=== PATIENT | female | born 1945 | race Caucasian/White ===

== ENCOUNTER 2023-09-23 13:28 | Emergency (ER) | payer MEDICARE, BC, SELFPAY ==
[2023-09-23 13:30] VITALS: BP 206/109
[2023-09-23 14:29] LABS: % Basophils 0.4 % (0-2); % Eosinophils 1.9 % (0-6); % Immature Granulocytes 0.2 % (0-0.5); % Lymphocytes 17.5 % (20.5-51.1); % Monocytes 7.2 % (1.7-9.3); % Neutrophils 72.8 % (42.2-75.2); Absolute Eosinophils 0.2 10^3/uL (0-0.7); Absolute Lymphocytes 1.4 10^3/uL (1.2-3.4); Absolute Monocytes 0.6 10^3/uL (0.1-0.6); Absolute Neutrophils 5.9 10^3/uL (1.4-6.5); Hematocrit 38.3 % (37.0-47.0); Hemoglobin 13.5 g/dL (12.0-16.0); Mean Corp Hgb Conc. 35.2 g/dL (33.0-37.0); Mean Corpuscular Hgb 31.2 pg (27.0-31.0); Mean Corpuscular Volume 88.5 fL (81.0-99.0); Mean Platelet Volume 11.8 fL (7.4-10.4); Nucleated Red Blood Cells % 0 %; Platelet Count 181 10^3/uL (130-400); Red Blood Cell Count 4.33 10^6/uL (4.20-5.40); Red Cell Dist. Width 12.6 % (11.5-14.5)
[2023-09-23 14:35] LABS: ALT (SGPT) 28 U/L (0-35); AST (SGOT) 35 U/L (14-36); Albumin 4.7 g/dl (3.5-5.0); Alkaline Phosphatase 69 U/L (38-126); Blood Urea Nitrogen 14 mg/dl (7-17); Calcium 9.5 mg/dl (8.4-10.2); Carbon Dioxide 28 mmol/L (22-30); Chloride 99 mmol/L (98-107); Glucose 99 mg/dl (70-99); Potassium 4.3 mmol/L (3.5-5.1); Sodium 133 mmol/L (135-145); Total Bilirubin 0.5 mg/dl (0.2-1.3); eGFR > 60.00
[2023-09-23 14:44] LABS: Troponin I < 0.012 ng/ml
[2023-09-23 15:52] VITALS: BMI 25.2
[2023-09-23 16:00] VITALS: BP 168/69
[2023-09-23] MEDS: NSS 500 IV (16:05)
[2023-09-23 17:00] VITALS: BP 148/69
[2023-09-23 17:39] LABS: Troponin I < 0.012 ng/ml
[2023-09-23 17:44] LABS: Urine Albumin Negative (Neg - Trace); Urine Bilirubin Negative (Negative); Urine Character Clear (Clear); Urine Color Yellow; Urine Glucose Negative (Negative); Urine Ketone Negative (Negative); Urine Leukocyte Negative (Negative); Urine Nitrite Negative (Negative); Urine Occult Blood Negative (Negative); Urine Specific Gravity 1.005 (<1.030); Urine Urobilinogen Negative (Neg - 1+)
[2023-09-23 18:00] VITALS: BP 149/59
--- NOTE | 2023-09-23 18:06 | ED.GENMED ---
History of Present Illness
General
Chief Complaint: Fainting Sensation
Source: patient and spouse
Exam Limitations: none
Time Seen by Provider: 09/23/23 15:05
Nursing documentation reviewed up to this point in time: agreed with
History of Present Illness
History of Present Illness:
77-year-old female with a past medical history of hypertension hyperlipidemia, CAD with previous triple bypass presenting to the emergency department today with concerns of lightheadedness after doing some work around the house this morning. Also
had associated nausea no vomiting no chest pain.
Past History
Past History
ED Past Medical History: CAD, HTN, Hypercholesterolemia and [place]
ED Past Surgical History: Cardiac (Cardiac bypass)
Social History
Tobacco: Non-smoker
Alcohol: None
Drug: None
Personal:
Living: with family
Review of Systems
Review of Systems
Allergies reviewed?: Yes
All Other Systems: ROS reviewed and negative except as documented in HPI and ROS
Phy Exam
Physical Exam
Physical Exam:
GENERAL: Alert , in no apparent distress
EYE: pupils equal and reactive
NECK: Supple, no significant adenopathy.
ENT: o/p clr, mmm.
CARDIAC: Regular rate and rhythm .
LUNGS: Clear breath sounds bilaterally, no acute respiratory distress, no wheezes/rales/rhonchi
ABDOMEN: Soft, without focal tenderness, no r/g, no cvat
NEUROLOGICAL: Alert and oriented, no focal neuro deficits
SKIN: Warm and dry, skin intact.
MUSCULOSKELETAL: No edema, well perfused.
PSYCH: Normal and appropriate interaction.
Course
Orders/Labs/Results
Orders:
Orders
09/23/23 13:33
EKG [Electrocardiogram (*1)] Urgent
Reason for Study: Fatigue / Weakness
EKG- Treatment ONCE
09/23/23 13:50
Complete Blood Count/With Diff Urgent
Comprehensive Metabolic Panel Urgent
Troponin I Urgent
09/23/23 15:37
0.9% Sodium Chloride 500 ml [Nss] 500 ml IV BOLUS
09/23/23 16:32
EKG- Treatment ONCE
09/23/23 16:50
Electrocardiogram (*1) Urgent
Reason for Study: Syncope
09/23/23 16:59
Troponin I Urgent
09/23/23 17:03
UA Reflex to Culture [Urinalysis Reflex To Culture] Urgent
Date Specimen was Collected: 09/23/23
Time Specimen was Collected: 17:01
Abnormal Lab Results
09/23/23
13:50
MCH 31.2 H pg
(27.0-31.0)
MPV 11.8 H fL
(7.4-10.4)
Lymphocytes % 17.5 L %
(20.5-51.1)
Sodium 133 L mmol/L
(135-145)
09/23/23 13:50
09/23/23 13:50
Vital Signs
Initial and Last Documented VS:
Initial Vital Signs
Temp Pulse Resp BP Pulse Ox
98.2 F 67 16 206/109 99
09/23/23 13:30 09/23/23 13:30 09/23/23 13:30 09/23/23 13:30 09/23/23 13:30
Last Documented Vital Signs
Temp Pulse Resp BP Pulse Ox
98.2 F 52 14 149/59 100
09/23/23 13:30 09/23/23 17:59 09/23/23 17:59 09/23/23 18:00 09/23/23 17:59
MDM/Problems Addressed
MDM/Problems Addressed:
77-year-old female presenting to the emergency department today with concerns of lightheadedness after doing some work around the house today. Also with associated nausea. Upon arrival blood pressure elevated otherwise vital signs are normal.
Patient does take blood pressure medication at home and did not miss any doses. Labs were obtained without acute abnormalities initial troponin negative EKG nonischemic urinalysis normal. Additional second EKG and troponin without acute
abnormalities. Blood pressure improving to the 140s over 60s. Patient asymptomatic throughout ER stay. Very low risk for acute cardiac etiology he was given some fluids. Advised for close outpatient follow-up and return precautions given.
*Critical Care Note
Total Time (30-74mins, 75-104mins- exclusive of procedures): Not Applicable
ED Attending Note
-
Portions of this chart may have been created with voice recognition software.� Occasional wrong word or��sound alike� substitutions may have occurred due to the inherent limitations of voice recognition software.
Discharge Plan
Departure
Patient Disposition: Home (Routine Discharge)
Date of Disposition: 09/23/23
Time of Disposition: 18:06
Patient with high blood pressure during this ER visit?: No
Condition: Good
Covid-19: Not Applicable
Discharge Problem:
Lightheadedness
Instructions: Near Fainting (DC)
Prescriptions:
No Action
aspirin 81 MG tablet,delayed release (DR/EC)
81 mg PO DAILY
rosuvastatin 5 MG tablet
10 mg PO .3 TIMES A WEEK
coenzyme Q10 [Co Q-10] 300 MG capsule
300 mg PO DAILY
metoprolol tartrate 25 MG tablet
25 mg PO BID
[id number] liver-vit A-D3 [cod liver oil] 1 EACH capsule
1 ea PO DAILY
Referrals:
Kori Kohler DO [Family Provider] -
Activity Restrictions/Additional Instructions:
You came to the emergency department today after an episode of feeling lightheaded earlier today. Here you had a very reassuring assessment to normal EKGs and 2 negative troponin levels and a normal urinalysis. Please follow-up closely with your
primary care team over the next week or so. Return to the emergency department any worsening, new or concerning symptoms.
Interventions
Interventions:
*Risk Screen - Suicide Last Done: 09/23/23 13:32
*General Assessment Last Done: 09/23/23 13:32
*Neglect/Abuse Screening Last Done: 09/23/23 13:32
ED- Fall Risk Assessment Last Done: 09/23/23 15:52
*ED COVID-19 Vaccine History Last Done: 09/23/23 15:52
*Nursing Disposition Last Done: 09/23/23 18:16
ED- Cardiac Assessment Last Done: 09/23/23 15:52
ED- Neurological Assessment Last Done: 09/23/23 15:52
Discharge Date and Time
Discharge Date/Time: 09/23/23 18:16
Print Language: ESTONIAN
== END 2023-09-23 18:16 | disposition home or self-care (01) ==
LOC: EMR 13:28
PROVIDERS: Physician Assistant; Student in an Organized Health Care Education/Training Program; EMERGENCY PHYSICIAN Emergency Medicine; FAMILY PHYSICIAN Family Medicine
DX: R42 Dizziness and giddiness (principal); I10 Essential (primary) hypertension; E78.00 Pure hypercholesterolemia, unspecified; I25.10 Atherosclerotic heart disease of native coronary artery without angina pectoris
CPT/HCPCS: 99284; 80053; 81003; 84484; 85025; 93005

== ENCOUNTER 2023-09-25 14:25 | Emergency (ER) | payer MEDICARE, BC, SELFPAY ==
[2023-09-25 14:35] VITALS: BP 189/85
[2023-09-25 15:10] LABS: % Basophils 0.3 % (0-2); % Eosinophils 0.9 % (0-6); % Immature Granulocytes 0.3 % (0-0.5); % Monocytes 5.3 % (1.7-9.3); % Neutrophils 76.2 % (42.2-75.2); Absolute Eosinophils 0.1 10^3/uL (0-0.7); Absolute Lymphocytes 1.2 10^3/uL (1.2-3.4); Absolute Monocytes 0.4 10^3/uL (0.1-0.6); Absolute Neutrophils 5.3 10^3/uL (1.4-6.5); Hematocrit 39.3 % (37.0-47.0); Hemoglobin 13.7 g/dL (12.0-16.0); Mean Corp Hgb Conc. 34.9 g/dL (33.0-37.0); Mean Corpuscular Hgb 30.9 pg (27.0-31.0); Mean Corpuscular Volume 88.7 fL (81.0-99.0); Mean Platelet Volume 11.6 fL (7.4-10.4); Nucleated Red Blood Cells % 0 %; Platelet Count 173 10^3/uL (130-400); Red Blood Cell Count 4.43 10^6/uL (4.20-5.40); Red Cell Dist. Width 12.7 % (11.5-14.5); White Blood Cell Count 6.9 10^3/uL (4.8-10.8)
[2023-09-25 15:20] LABS: ALT (SGPT) 32 U/L (0-35); AST (SGOT) 36 U/L (14-36); Albumin 4.9 g/dl (3.5-5.0); Alkaline Phosphatase 66 U/L (38-126); Blood Urea Nitrogen 13 mg/dl (7-17); Calcium 9.6 mg/dl (8.4-10.2); Carbon Dioxide 28 mmol/L (22-30); Chloride 99 mmol/L (98-107); Glucose 99 mg/dl (70-99); Sodium 135 mmol/L (135-145); Total Bilirubin 0.6 mg/dl (0.2-1.3); Total Protein 7.4 g/dl (6.3-8.2); eGFR > 60.00
[2023-09-25 18:01] VITALS: BP 173/69
--- NOTE | 2023-09-25 18:27 | ED.GENMED ---
History of Present Illness
General
Chief Complaint: Dizziness
Source: patient and spouse
Exam Limitations: none
Time Seen by Provider: 09/25/23 18:07
History of Present Illness
History of Present Illness:
77-year-old female presents with a lightheadedness. Patient states started couple days ago she was seen in the emergency department. She was feeling better. Patient states she was then cleaning drapes and vacuuming them. She was going up and
down. She suddenly began to feel lightheaded again. He states it was definitely worse when she changed position. On my evaluation she denies any symptoms and feels that her symptoms have resolved. When she called her outboard motorboat operator they told her
to come for evaluation. She has an appointment upcoming with cardiology this week for follow-up. Patient also admits that her blood pressure is a little bit high at home
Past History
Past History
ED Past Medical History: CAD, HTN, Hypercholesterolemia and [place]
ED Past Surgical History: Cardiac (Cardiac bypass)
Social History
Tobacco: Non-smoker
Alcohol: None
Drug: None
Personal:
Living: with family
Phy Exam
Physical Exam
Physical Exam:
CONSTITUTIONAL Patient alert and oriented to person, place and time. Well-appearing. Vital signs reviewed.
HEAD atraumatic, normocephalic.
EYES eyelids normal to inspection, Pupils equally round and reactive to light, Extraocular muscles intact, Conjunctiva normal, Sclera normal.
NECK normal range of motion, Trachea midline, no jugular venous distention.
RESPIRATORY CHEST No respiratory distress noted, Chest expansion equal, Bilateral breath sounds clear.
CARDIOVASCULAR regular rate and rhythm, Heart sounds normal.
ABDOMEN abdomen nontender, Bowel sounds normal. No distention.
BACK normal inspection, no obvious deformities
UPPER EXTREMITY range of motion normal, Motor strength normal, no cyanosis, no edema.
LOWER EXTREMITY range of motion normal, Motor strength normal, no cyanosis, no edema.
NEURO Speech normal, No focal motor deficits, Andrew coma scale 15, Memory normal, Cranial Nerves intact to screening exam. Normal [id number]. No pronator drift
SKIN skin warm, dry, and normal in color.
PSYCHIATRIC patient oriented to person place and time, Normal affect.
Course
Orders/Labs/Results
Orders:
Orders
09/25/23 14:41
Electrocardiogram (*1) Urgent
Reason for Study: Vertigo / Dizzy
EKG- Treatment ONCE
09/25/23 14:49
Complete Blood Count/With Diff Urgent
Comprehensive Metabolic Panel Urgent
Abnormal Lab Results
09/25/23
14:49
MPV 11.6 H fL
(7.4-10.4)
Neutrophils % 76.2 H %
(42.2-75.2)
Lymphocytes % 17.0 L %
(20.5-51.1)
Creatinine 0.5 L mg/dL
(0.6-1.0)
09/25/23 14:49
09/25/23 14:49
Vital Signs
Initial and Last Documented VS:
Initial Vital Signs
Temp Pulse Resp BP Pulse Ox
98.5 F 65 16 189/85 98
09/25/23 14:35 09/25/23 14:35 09/25/23 14:35 09/25/23 14:35 09/25/23 14:35
Last Documented Vital Signs
Temp Pulse Resp BP Pulse Ox
98.5 F 60 18 173/69 98
09/25/23 14:35 09/25/23 18:30 09/25/23 18:30 09/25/23 18:01 09/25/23 18:15
MDM/Problems Addressed
MDM/Problems Addressed:
Hypertension, lightheadedness
*Pulse Oximetry
Patient hypoxic: no
*EKG
Interpreted by ED Provider?: Yes
Interpretation: normal
Rate: normal
Rhythm: sinus
[place]: normal axis
Interval: normal interval
QRS Pattern: normal QRS
Ischemia: no ischemia
*Sheet Cutter Interpretation
Rate: normal
Interpretation: normal
Rhythm: sinus
*Critical Care Note
Total Time (30-74mins, 75-104mins- exclusive of procedures): Not Applicable
Data Reviewed
Review of Other/Old Records Reveals: Labs (recent labs reviewed)
Source: patient and spouse
Further Testing Considered But Not Given:
considered CTH but sx's resolved. appears well. pt already with cards f/u this week. cerebellar exam nl.
ED Attending Note
-
Portions of this chart may have been created with voice recognition software.� Occasional wrong word or��sound alike� substitutions may have occurred due to the inherent limitations of voice recognition software.
Discharge Plan
Departure
Patient Disposition: Home (Routine Discharge)
Date of Disposition: 09/25/23
Time of Disposition: 18:27
Patient with high blood pressure during this ER visit?: Yes
Discharge Problem:
Lightheadedness
Instructions: Dizziness, Nonvertigo, (DC), BLOOD PRESSURE
Prescriptions:
No Action
aspirin 81 MG tablet,delayed release (DR/EC)
81 mg PO DAILY
rosuvastatin 5 MG tablet
10 mg PO .3 TIMES A WEEK
coenzyme Q10 [Co Q-10] 300 MG capsule
300 mg PO DAILY
metoprolol tartrate 25 MG tablet
25 mg PO BID
[id number]-cod liver-vit A-D3 [cod liver oil] 1 EACH capsule
1 ea PO DAILY
Activity Restrictions/Additional Instructions:
Please see cardiology Monday as planned. Please avoid strenuous or exertional activity until seen by cardiology. Return immediately for chest pain, shortness of breath, palpitations, weakness of any kind or any other concerns.
Interventions
Interventions:
*Risk Screen - Suicide Last Done: 09/25/23 18:40
*General Assessment Last Done: 09/25/23 18:40
*Neglect/Abuse Screening Last Done: 09/25/23 18:40
ED- Fall Risk Assessment Last Done: 09/25/23 18:33
*Nursing Disposition Last Done: 09/25/23 18:40
ED- Neurological Assessment Last Done: 09/25/23 18:33
ED- Cardiac Assessment Last Done: 09/25/23 18:33
ED Swallowing Screen Last Done: 09/25/23 18:33
Discharge Date and Time
Discharge Date/Time: 09/25/23 18:42
Print Language: YAKUT
== END 2023-09-25 18:42 | disposition home or self-care (01) ==
LOC: EMR 14:25
PROVIDERS: EMERGENCY PHYSICIAN Emergency Medicine; FAMILY PHYSICIAN Family Medicine
DX: R42 Dizziness and giddiness (principal); I25.10 Atherosclerotic heart disease of native coronary artery without angina pectoris; I10 Essential (primary) hypertension; E78.00 Pure hypercholesterolemia, unspecified; I25.2 Old myocardial infarction
CPT/HCPCS: 99283; 80053; 85025; 93005

== ENCOUNTER → 2023-10-04 13:06 | Outpatient (REF) | payer MEDICARE, BC, SELFPAY | LOC: WDC 13:06 | PROVIDERS: ATTENDING PHYSICIAN Family Medicine | DX: Z12.31 Encounter for screening mammogram for malignant neoplasm of breast (principal) | CPT/HCPCS: 77063; 77067 ==

== ENCOUNTER → 2023-10-11 07:04 | Outpatient (REF) | payer MEDICARE, BC, SELFPAY ==
[2023-10-11 11:01] LABS: % Basophils 0.8 % (0-2); % Eosinophils 3.8 % (0-6); % Lymphocytes 36.2 % (20.5-51.1); % Monocytes 10.1 % (1.7-9.3); % Neutrophils 49.1 % (42.2-75.2); Absolute Eosinophils 0.2 10^3/uL (0-0.7); Absolute Lymphocytes 1.4 10^3/uL (1.2-3.4); Absolute Monocytes 0.4 10^3/uL (0.1-0.6); Hematocrit 37.7 % (37.0-47.0); Hemoglobin 13.1 g/dL (12.0-16.0); Mean Corp Hgb Conc. 34.7 g/dL (33.0-37.0); Mean Corpuscular Hgb 31.9 pg (27.0-31.0); Mean Corpuscular Volume 91.7 fL (81.0-99.0); Mean Platelet Volume 12.4 fL (7.4-10.4); Nucleated Red Blood Cells % 0 %; Platelet Count 150 10^3/uL (130-400); Red Blood Cell Count 4.11 10^6/uL (4.20-5.40); Red Cell Dist. Width 12.7 % (11.5-14.5)
[2023-10-11 11:08] LABS: ALT (SGPT) 21 U/L (0-35); AST (SGOT) 27 U/L (14-36); Albumin 4.2 g/dl (3.5-5.0); Alkaline Phosphatase 50 U/L (38-126); Blood Urea Nitrogen 13 mg/dl (7-17); Calcium 9.2 mg/dl (8.4-10.2); Carbon Dioxide 29 mmol/L (22-30); Chloride 102 mmol/L (98-107); Glucose 95 mg/dl (70-99); HDL Cholesterol 71 mg/dl; LDL Cholesterol, Calculated 92 mg/dl; Potassium 3.9 mmol/L (3.5-5.1); Sodium 136 mmol/L (135-145); Total Bilirubin 0.6 mg/dl (0.2-1.3); Total Cholesterol 175 mg/dl (50-199); Total Protein 6.4 g/dl (6.3-8.2); Triglyceride 64 mg/dl (10-149); Very Low Density Lipoprotein 12 mg/dl (0-30); eGFR > 60.00
== END ==
LOC: HWLAB 07:04
PROVIDERS: ATTENDING PHYSICIAN Family Medicine; REFERRING PHYSICIAN Nurse Practitioner
DX: I25.10 Atherosclerotic heart disease of native coronary artery without angina pectoris (principal); I10 Essential (primary) hypertension; E78.00 Pure hypercholesterolemia, unspecified; Z00.00 Encounter for general adult medical examination without abnormal findings
CPT/HCPCS: 36415; 80053; 80061; 85025

== ENCOUNTER → 2023-10-18 07:11 | Outpatient (REF) | payer MEDICARE, BC, SELFPAY | LOC: HWRCS 07:11 | PROVIDERS: ATTENDING PHYSICIAN Nurse Practitioner; FAMILY PHYSICIAN Family Medicine | DX: I10 Essential (primary) hypertension (principal) | CPT/HCPCS: 93306 ==

== ENCOUNTER → 2024-01-29 06:56 | Outpatient (REF) | payer MEDICARE, BC, SELFPAY ==
[2024-01-29 09:48] LABS: HDL Cholesterol 74 mg/dl; LDL Cholesterol, Calculated 72 mg/dl; Total Cholesterol 159 mg/dl (50-199); Triglyceride 65 mg/dl (10-149); Very Low Density Lipoprotein 13 mg/dl (0-30)
== END ==
LOC: HWLAB 06:56
PROVIDERS: ATTENDING PHYSICIAN Internal Medicine; FAMILY PHYSICIAN Family Medicine
DX: I36.1 Nonrheumatic tricuspid (valve) insufficiency (principal); E78.49 Other hyperlipidemia
CPT/HCPCS: 36415; 80061

== ENCOUNTER → 2024-07-23 08:00 | Outpatient (REF) | payer MEDICARE, BC, SELFPAY ==
[2024-07-23 10:33] LABS: HDL Cholesterol 61 mg/dl; LDL Cholesterol, Calculated 71 mg/dl; Total Cholesterol 146 mg/dl (50-199); Triglyceride 71 mg/dl (10-149); Very Low Density Lipoprotein 14 mg/dl (0-30)
== END ==
LOC: HWLAB 08:00
PROVIDERS: ATTENDING PHYSICIAN Student in an Organized Health Care Education/Training Program; FAMILY PHYSICIAN Family Medicine
DX: I25.810 Atherosclerosis of coronary artery bypass graft(s) without angina pectoris (principal)
CPT/HCPCS: 36415; 80061

== ENCOUNTER → 2024-10-04 11:50 | Outpatient (REF) | payer MEDICARE, BC, SELFPAY | LOC: WDC 11:50 | PROVIDERS: ATTENDING PHYSICIAN Family Medicine | DX: Z12.31 Encounter for screening mammogram for malignant neoplasm of breast (principal) | CPT/HCPCS: 77063; 77067 ==

== ENCOUNTER → 2024-10-16 06:27 | Outpatient (REF) | payer MEDICARE, BC, SELFPAY ==
[2024-10-16 10:11] LABS: Hematocrit 39.0 % (37.0-47.0); Hemoglobin 12.8 g/dL (12.0-16.0); Mean Corp Hgb Conc. 32.8 g/dL (33.0-37.0); Mean Corpuscular Volume 90.7 fL (81.0-99.0); Nucleated Red Blood Cells % 0 %; Platelet Count 136 10^3/uL (130-400); Red Cell Dist. Width 13.1 % (11.5-14.5)
[2024-10-16 10:26] LABS: ALT (SGPT) 26 U/L (0-35); AST (SGOT) 28 U/L (14-36); Albumin 4.3 g/dl (3.5-5.0); Alkaline Phosphatase 47 U/L (38-126); Blood Urea Nitrogen 11 mg/dl (7-17); Calcium 9.0 mg/dl (8.4-10.2); Carbon Dioxide 30 mmol/L (22-30); Chloride 105 mmol/L (98-107); Glucose 92 mg/dl (70-99); Potassium 4.1 mmol/L (3.5-5.1); Sodium 139 mmol/L (135-145); Total Protein 6.5 g/dl (6.3-8.2); eGFR > 60.00
[2024-10-16 10:52] LABS: TSH 4.69 uIU/ml (0.47-4.68)
== END ==
LOC: HWLAB 06:27
PROVIDERS: ATTENDING PHYSICIAN Family Medicine
DX: I25.10 Atherosclerotic heart disease of native coronary artery without angina pectoris (principal); I48.0 Paroxysmal atrial fibrillation; Z00.00 Encounter for general adult medical examination without abnormal findings; I10 Essential (primary) hypertension
CPT/HCPCS: 36415; 80053; 84443; 85025

== ENCOUNTER 2024-11-06 06:21 | Day surgery (SDC) | payer MEDICARE, BC, SELFPAY | END 2024-11-06 14:00 | disposition home or self-care (01) | LOC: GI 06:21 | PROVIDERS: ATTENDING PHYSICIAN Student in an Organized Health Care Education/Training Program; FAMILY PHYSICIAN Family Medicine | DX: Z12.11 Encounter for screening for malignant neoplasm of colon (principal); Z86.0100 Personal history of colon polyps, unspecified; K64.8 Other hemorrhoids; K57.30 Diverticulosis of large intestine without perforation or abscess without bleeding; D49.0 Neoplasm of unspecified behavior of digestive system; D12.3 Benign neoplasm of transverse colon; D12.0 Benign neoplasm of cecum; D12.2 Benign neoplasm of ascending colon; K62.1 Rectal polyp | CPT/HCPCS: 45385; 45380; 88305 ==

== ENCOUNTER → 2024-11-20 06:54 | Outpatient (REF) | payer MEDICARE, BC, SELFPAY ==
[2024-11-20 09:53] LABS: HDL Cholesterol 74 mg/dl; LDL Cholesterol, Calculated 69 mg/dl; Very Low Density Lipoprotein 14 mg/dl (0-30)
== END ==
LOC: HWLAB 06:54
PROVIDERS: ATTENDING PHYSICIAN Student in an Organized Health Care Education/Training Program; FAMILY PHYSICIAN Family Medicine
DX: I25.810 Atherosclerosis of coronary artery bypass graft(s) without angina pectoris (principal)
CPT/HCPCS: 36415; 80061

== ENCOUNTER 2025-02-06 06:16 | Day surgery (SDC) | payer MEDICARE, BC, SELFPAY ==
[2025-02-06 07:15] VITALS: BMI 24.4
[2025-02-06 07:16] VITALS: BP 148/62
[2025-02-06 09:23] VITALS: BP 146/70
[2025-02-06 09:32] VITALS: BP 152/77
[2025-02-06 09:45] VITALS: BP 155/74
[2025-02-06 10:00] VITALS: BP 149/62
== END 2025-02-06 10:25 | disposition home or self-care (01) ==
LOC: SDS 06:16
PROVIDERS: ATTENDING PHYSICIAN Internal Medicine Gastroenterology
DX: D12.2 Benign neoplasm of ascending colon (principal); K62.89 Other specified diseases of anus and rectum; K64.0 First degree hemorrhoids; Z79.01 Long term (current) use of anticoagulants
CPT/HCPCS: 45390; 45380; 88305

== ENCOUNTER → 2025-02-25 07:02 | Outpatient (REF) | payer MEDICARE, BC, SELFPAY ==
[2025-02-25 08:16] LABS: HDL Cholesterol 71 mg/dl; LDL Cholesterol, Calculated 70 mg/dl; Very Low Density Lipoprotein 14 mg/dl (0-30)
== END ==
LOC: REG 07:02
PROVIDERS: ATTENDING PHYSICIAN Student in an Organized Health Care Education/Training Program
DX: I25.10 Atherosclerotic heart disease of native coronary artery without angina pectoris (principal); E78.5 Hyperlipidemia, unspecified
CPT/HCPCS: 36415; 80061

== ENCOUNTER 2025-03-04 12:08 | Emergency (ER) | payer MEDICARE, BC, SELFPAY ==
[2025-03-04 12:22] VITALS: BP 170/82
[2025-03-04 12:41] LABS: Hematocrit 40.0 % (37.0-47.0); Hemoglobin 13.4 g/dL (12.0-16.0); Mean Corp Hgb Conc. 33.5 g/dL (33.0-37.0); Mean Corpuscular Volume 90.9 fL (81.0-99.0); Nucleated Red Blood Cells % 0 %; Platelet Count 161 10^3/uL (130-400); Red Cell Dist. Width 13.1 % (11.5-14.5)
[2025-03-04 12:54] LABS: ALT (SGPT) 28 U/L (0-35); AST (SGOT) 32 U/L (14-36); Albumin 4.8 g/dl (3.5-5.0); Alkaline Phosphatase 62 U/L (38-126); Blood Urea Nitrogen 13 mg/dl (7-17); Calcium 9.7 mg/dl (8.4-10.2); Carbon Dioxide 28 mmol/L (22-30); Chloride 102 mmol/L (98-107); Glucose 100 mg/dl (70-99); Potassium 4.4 mmol/L (3.5-5.1); Sodium 136 mmol/L (135-145); Total Protein 7.7 g/dl (6.3-8.2); eGFR > 60.00
[2025-03-04 13:01] LABS: Troponin I < 0.012 ng/ml
[2025-03-04 16:20] VITALS: BP 157/67
--- NOTE | 2025-03-04 16:20 | ED.GENMED ---
History of Present Illness
General
Chief Complaint: Chest Pain
Source: patient
Exam Limitations: none
Time Seen by Provider: 03/04/25 16:20
Nursing documentation reviewed up to this point in time: agreed with
History of Present Illness
History of Present Illness:
79-year-old female with history of HTN, HLD, LA, Triple bypass 2017, stating for a couple days last week she had mild belching with chest pain and her arms felt a little 'weighty,' symptoms have been more frequent past 5 days, left upper chest pains
only with belching. No CP otherwise. Denies SOB, lightheadedness, abd pain. Denies n/v/d/c. No chest pain presently.
Past History
Past History
ED Past Medical History: CAD, HTN, Hypercholesterolemia and LA
ED Past Surgical History: Cardiac (Cardiac bypass)
Social History
Tobacco: Non-smoker
Alcohol: None
Drug: None
Personal:
Living: with family
Review of Systems
Review of Systems
Allergies reviewed?: Yes
All Other Systems: ROS reviewed and negative except as documented in HPI and ROS
Phy Exam
Physical Exam
Physical Exam:
GENERAL: No acute distress. A&Ox3.
CONSTITUTIONAL: Afebrile.
EYES: clear, conjunctivae normal
ENMT: moist mucus membranes, Pharynx nl
RESPIRATORY: Regular respirations, nonlabored, lungs clear.
CARDIOVASCULAR: Regular rate and rhythm, no murmurs, no rubs.
GI: Soft, nontender, normal BS
MUSCULOSKELETAL: Moves with ease. Well perfused.
SKIN: Warm, dry, pink
PSYCH: Normal mood and affect. Well kept, interactive and appropriate
NEUROLOGIC: Awake, alert and oriented. No focal neurological deficits
Scores
Heart Score for Chest Pain Patients
STEMI patient?: Not applicable
Course
Orders/Labs/Results
Orders:
Orders
03/04/25 12:09
EKG [Electrocardiogram (*1)] Urgent
Reason for Study: Chest Pain
03/04/25 12:10
EKG- Treatment ONCE
03/04/25 12:25
Electrocardiogram (*1) Urgent
Reason for Study: Chest Pain
EKG- Treatment ONCE
03/04/25 12:30
Complete Blood Count/With Diff Urgent
Comprehensive Metabolic Panel Urgent
Troponin I Urgent
Abnormal Lab Results
03/04/25
12:30
MPV 11.6 H fL
(7.4-10.4)
Absolute Lymphs (auto) 1.1 L 10^3/uL
(1.2-3.4)
Neutrophils % 76.0 H %
(42.2-75.2)
Lymphocytes % 14.5 L %
(20.5-51.1)
Glucose 100 H mg/dl
(70-99)
03/04/25 12:30
03/04/25 12:30
Vital Signs
Initial and Last Documented VS:
Initial Vital Signs
Temp Pulse Resp BP Pulse Ox
98.5 F 65 18 170/82 97
03/04/25 12:22 03/04/25 12:22 03/04/25 12:22 03/04/25 12:22 03/04/25 12:22
Last Documented Vital Signs
Temp Pulse Resp BP Pulse Ox
98.5 F 62 20 157/67 96
03/04/25 12:22 03/04/25 16:30 03/04/25 16:30 03/04/25 16:20 03/04/25 16:30
MDM/Problems Addressed
Differential Diagnosis Includes:
ACS, LA, GERD
MDM/Problems Addressed:
79-year-old female with history of HTN, HLD, LA, Triple bypass 2016, stating for a couple days last week she had mild belching with chest pain and her arms felt a little 'weighty,' symptoms have been more frequent past 5 days, left upper chest pains
only with belching. No CP otherwise. Denies SOB, lightheadedness, abd pain. Denies n/v/d/c. No chest pain presently.
EKG NSR no change from previous
CBC normal CMP normal
Troponin WNL
Unlikely cardiac as it only occurs with belching.
Patient remains symptom-free.
She had an appointment with her desktop administrator [address] Nesbitt and states 'all was good.'
No indication of cardiac etiology in workup here today
Will trial Omeprazole and f/u with PCP. Return if worse
*Pulse Oximetry
SaO2: 97
Oxygen Mode of Delivery: Room air
Patient hypoxic: no
*EKG
EKG Intrepretation Date: 03/04/25
Interpretation: normal
Heart Rate: 73
Rate: normal
Rhythm: sinus
[place]: normal axis
Interval: normal interval
QRS Pattern: normal QRS
Ischemia: no ischemia
*Critical Care Note
Total Time (30-74mins, 75-104mins- exclusive of procedures): Not Applicable
ED Attending Note
-
Portions of this chart may have been created with voice recognition software.� Occasional wrong word or��sound alike� substitutions may have occurred due to the inherent limitations of voice recognition software.
Discharge Plan
Departure
Patient Disposition: Home (Routine Discharge)
Date of Disposition: 03/04/25
Time of Disposition: 16:41
Patient with high blood pressure during this ER visit?: No
Condition: Good
Discharge Problem:
Atypical chest pain
Instructions: Chest Pain That Is Not Caused by the Heart (DC), Acid reflux and GERD in adults - ED (DC)
Prescriptions:
No Action
lisinopril 2.5 mg Tablet
2.5 mg PO DAILY
rosuvastatin 40 mg Tablet
40 mg PO DAILY
metoprolol tartrate 25 mg Tablet
25 mg PO BID
cholecalciferol (vitamin D3) [Vitamin D3] 50 mcg (2,000 unit) Tablet
50 mcg PO DAILY
coQ10 (ubiquinol) 200 mg Capsule
200 mg PO DAILY
Eliquis 5 mg Tablet
5 mg PO BID
Referrals:
Kori Kohler, DO [Family Provider, Family Practice] - As needed
Activity Restrictions/Additional Instructions:
As we discussed, your workup here today shows nothing worrisome, specifically no sign of a heart attack or injury to your heart
Try omeprazole, [id number], once daily on an empty stomach. Do this for 2 weeks to see if it helps. If it does not help follow-up with your primary doctor.
Return here immediately with chest pain that persists or is associated with breaking out in a sweat, feeling nauseous or lightheaded or feeling worse in any way.
Interventions
Interventions:
*General Assessment Last Done: 03/04/25 16:22
*Neglect/Abuse Screening Last Done: 03/04/25 16:22
*ED COVID-19 Vaccine History Last Done: 03/04/25 16:22
*ED Influenza Vaccine History Last Done: 03/04/25 16:22
[facility] Risk Assessment Tool Last Done: 03/04/25 16:22
*Risk Screen - Suicide (C-SSRS) Last Done: 03/04/25 16:22
*Nursing Disposition Last Done: 03/04/25 16:53
ED- Cardiac Assessment Last Done: 03/04/25 16:22
Discharge Date and Time
Discharge Date/Time: 03/04/25 16:54
Print Language: VIETNAMESE
[2025-03-04 16:21] VITALS: BMI 25.4
== END 2025-03-04 16:54 | disposition home or self-care (01) ==
LOC: EMR 12:08
PROVIDERS: Emergency Medicine; EMERGENCY PHYSICIAN Emergency Medicine; FAMILY PHYSICIAN Family Medicine
DX: R07.89 Other chest pain (principal); I25.10 Atherosclerotic heart disease of native coronary artery without angina pectoris; E78.00 Pure hypercholesterolemia, unspecified; I10 Essential (primary) hypertension; I25.2 Old myocardial infarction; Z95.1 Presence of aortocoronary bypass graft
CPT/HCPCS: 99284; 80053; 84484; 85025; 93005